=== PATIENT | female | born 1990 | race Caucasian/White ===

== ENCOUNTER 2017-02-01 22:52 | Inpatient (IN) | payer OTHER ==
--- NOTE | ~2017-02-01 | CO ---
Unit #: [id number] #: [id number] Patient: SHYLA GUZMÁN [id number] [address] [address] [id number] I MR#: [id number] NAME: SHYLA GUZMÁN ROOM: 207 Age: 26 Sex: F Admission Date: 02/02/2017 : 1990 Attending Physician: Neal Long M.D. Primary Care Physician: Primary Care Physician No Consultation Date: 02/02/2017 CONSULTATION REPORT REASON FOR CONSULTATION Severe anemia. HISTORY OF PRESENT ILLNESS Ms. Guzmán is a 26-year-old lady. She presented to the emergency room with complaints of headache. Initial workup shows evidence of sinusitis; however, no neurological abnormalities were seen. She was found to be severely anemic. On further questioning, she says she has small amount of bright red blood in the stool off and on. She has a history of peptic ulcer disease 6 years ago. She has been taking ibuprofen on a daily basis. She denies any nausea or vomiting. She denied any abdominal pain. PAST MEDICAL HISTORY Significant for transfusion in 2011. ALLERGIES None. MEDICATIONS At home, ibuprofen. FAMILY HISTORY No history of colon cancer. SOCIAL HISTORY Smoker. Denies alcohol or drug abuse. REVIEW OF SYSTEMS Complete 10-point review of systems was done, which is unremarkable other than as mentioned above. PHYSICAL EXAMINATION VITAL SIGNS: Stable. She is afebrile. Temperature 98, pulse 84, respirations 16, blood pressure 110/68. HEENT: Pupils are equal and reactive. Sclerae anicteric. Oral mucosa moist. NECK: No JVD. No lymphadenopathy. CHEST: Clear to auscultation bilaterally. CARDIOVASCULAR: Regular rate and rhythm. No murmurs. ABDOMEN: Soft, mild epigastric tenderness. No rebound. No guarding. Bowel sounds present. EXTREMITIES: Without clubbing, cyanosis, or edema. NEUROLOGIC: Intact. Unit #: [id number] #: [id number] Patient: SHYLA GUZMÁN SKIN: Warm and dry. DIAGNOSTIC STUDIES LABORATORY RESULTS: Hemoglobin of 7.8, MCV of 62. Ferritin of 2. Normal chemistries. ASSESSMENT AND PLAN The patient with severe iron-deficiency anemia, no excessive menstrual blood loss most likely chronic blood loss through the GI tract, history of peptic ulcer disease, recurrent ulcers possible. Once she is taking significant amount of NSAIDs, we will plan on doing an upper endoscopy. Given her history of brighter red blood in the stool, she will need a colonoscopy also for evaluation. We will also give her iron replacement. Further recommendations to be based on endoscopic findings. Thank you, Dr. Hermosillo for this interesting consult. We will follow along. Dictated by... Reyes Fuller/sylvie TD: 02/02/2017 23:02 JOB #: [id number] CONSULTATION REPORT X Braulio Morris MD X CONSULTATION REPORT
--- NOTE | ~2017-02-01 | OR ---
Unit #: [id number] #: [id number] Patient: SHYLA GUZMÁN [id number] [address] [address] [id number] MR#: [id number] NAME: SHYLA GUZMÁN ROOM: 207 Date of Procedure: 02/04/2017 Admission Date: 02/02/2017 Surgeon: Braulio Morris M.D. : 1990 Attending Physician: Neal Long M.D. Primary Care Physician: Primary Care Physician No OPERATIVE REPORT PROCEDURE PERFORMED Colonoscopy to cecum. INDICATIONS FOR PROCEDURE A 26-year-old presented with very severe iron-deficiency anemia, undergoing evaluation with colonoscopy. MEDICATIONS Monitored anesthesia. POSTOPERATIVE FINDINGS Colonoscopy completed to cecum. No polyps, masses, or colitis were seen. Prep was adequate. PLAN Continue with iron supplementation. DESCRIPTION OF PROCEDURE The patient was explained of the procedure, risks, and benefits along with risks and benefits of anesthesia. She was brought to the endoscopy room. Propofol anesthesia was given. Rectal exam was done, which was normal. Colonoscope was lubricated, passed up the rectum, advanced under direct vision all the way to the cecum. Cecum was identified by ileocecal valve and appendiceal orifice. I then started to pull the scope out carefully looking. No polyps, masses, or colitis was seen. Mucosa was normal and healthy. I retroflexed in the rectum, small hemorrhoids seen. Gently, the scope was pulled out. She tolerated it well. Dictated by... Reyes Fuller/sylvie TD: 02/05/2017 03:30 JOB #: [id number] Unit #: [id number] #: [id number] Patient: SHYLA GUZMÁN OPERATIVE REPORT X Braulio Morris MD X PROCEDURE OPERATIVE NOTE
--- NOTE | ~2017-02-01 | HP ---
Unit #: [id number] #: [id number] Patient: SHYLA GUZMÁN [id number] [address] [address] [id number] I MR#: [id number] NAME: SHYLA GUZMÁN ROOM: 60444 Age: 26 Sex: F Admission Date: 02/02/2017 : 1990 Attending Physician: Samia Hermosillo M.D. Primary Care Physician: No Primary Care Physician HISTORY AND PHYSICAL CHIEF COMPLAINT Symptomatic microcytic anemia. HISTORY This cirilo 26-year-old female, with previous history of anemia requiring transfusion in 2012 following a , is admitted for symptomatic anemia. The patient was actually seen in this emergency department yesterday for headaches. She ultimately underwent a head CT and MRI scan of the brain consistent with sinusitis. However, in the course of her evaluation, she was found to have a microcytic anemia with a hemoglobin of 7.8. She states that over the past month she notes intermittent bright red blood per rectum separate from the stool although denies change in her usual bowel habits otherwise. States that her menstrual periods are not particularly heavy. She was offered admission but declined. She does have children at home. Therefore, she came back to this emergency department late last evening for admission. Her current hematocrit is 26.7 with a hemoglobin of 7.8. She is heme negative on rectal examination. PAST MEDICAL HISTORY Anemia requiring transfusion in 2012 after a . ALLERGIES None. HOME MEDICATIONS Amoxicillin for sinusitis. FAMILY HISTORY Negative for colon disease or anemia. SOCIAL HISTORY The patient lives with her four children. Denies any possibility of . Smokes one pack per day of tobacco. Does not drink alcohol or use illicit drugs. REVIEW OF SYSTEMS Notable for weakness, fatigue, anemia, tobacco use, sinusitis. All other systems were reviewed and are negative. PHYSICAL EXAMINATION GENERAL APPEARANCE: Pleasant, thin, 26-year-old female, currently in no acute distress. Unit #: [id number] #: [id number] Patient: SHYLA GUZMÁN VITAL SIGNS: Temperature 98, pulse 84, respirations 16, blood pressure 110/68. O2 saturation is 100% on room air. HEENT: Eyes PERRLA. Extraocular muscles are intact. Pharynx is benign. Dentures are in place. NECK: Supple without adenopathy or thyromegaly. CHEST: Clear. CARDIAC: Normal S1 and S2 without S3, S4 or murmur. ABDOMEN: Bowel sounds are present. No hepatosplenomegaly, tenderness or masses. RECTAL EXAMINATION: Heme negative stool in the ER. EXTREMITIES: Without clubbing, cyanosis or edema. Pedal pulses are present. NEUROLOGIC EXAM: The patient is awake, alert, oriented. Cranial nerves are intact. Equal strength throughout. DIAGNOSTIC STUDIES LABORATORY: Hematocrit is 26.7, hemoglobin 7.8, MCV is 62, normal white count and platelet count. Coags normal. SMA-12 - potassium is 3.2. ASSESSMENT 1. Symptomatic microcytic anemia. 2. Bright red blood per rectum over the past month. 3. Sinus infection, on amoxicillin. 4. Hypokalemia. 5. Tobacco abuse. PLANS 1. Check iron storers. 2. Transfuse one unit of packed red blood cells, and repeat CBC following transfusion. 3. GI to see in consultation. 4. Replace potassium, check magnesium. Dictated by Samia Hermosillo M.D. AML/df TD: 02/02/2017 06:43 JOB #: [id number] HISTORY AND PHYSICAL X Samia Hermosillo MD X HISTORY AND PHYSICAL
--- NOTE | ~2017-02-01 | DS ---
Unit #: [id number] #: [id number] Patient: SHYLA GUZMÁN [id number] [address] [address] [id number] I MR#: [id number] NAME: SHYLA GUZMÁN ROOM: 207 Age: 26 Sex: F Admission Date: 02/02/2017 : 1990 Discharge Date: 02/04/2017 Attending Physician: Neal Long M.D. DISCHARGE SUMMARY ADMITTING DIAGNOSIS Anemia. FURTHER DIAGNOSES 1. Erin esophagitis. 2. Helicobacter pylori. STRAIGHT EDGER Dr. Barulio Morris. PROCEDURES EGD and colonoscopy. EGD showed gastritis and severe ulcerative esophagitis with whitish deposits in the upper, middle, and distal esophagus circumferentially. Biopsies were taken to rule out Erin esophagitis. The distal esophagus showed a hiatal hernia and esophageal ring that was nonobstructing. Mild gastroduodenitis. Biopsies were taken. She also had a colonoscopy. The colonoscopy was essentially unremarkable. HOSPITAL COURSE Patient was initially admitted to the hospital. She had blood transfusions done. She did not have any further drop in hemoglobin and hematocrit. She had an EGD done on the day of admission which showed Erin esophagitis. She was started on Diflucan. With a concern of having Erin (1) diagnosis, we checked an HIV serology which was negative, and HIV viral load was ordered. HIV viral load is pending at this point. She also had a biopsy when she had the EGD and it came back positive for H. pylori. I had a conversation with Dr. Morris. He recommended to treat esophagitis with Erin initially with Diflucan, and once she is done with the antifungal, to treat as an outpatient for the H. pylori infection. Will give her a prescription for Diflucan 200 mg p.o. daily for 10 days and request her to follow with Dr. Morris in one to two weeks. At that time, he said he will give her a prescription for the H. pylori. I requested her to take Protonix and follow with her primary care as an outpatient. She will be discharged home today in stable condition. PHYSICAL EXAMINATION ON DAY OF DISCHARGE VITAL SIGNS: Temperature 97.8, pulse rate 69, respiratory rate 14, and blood pressure 108/58. GENERAL: Patient is alert and oriented x3, lying in the bed in no acute distress. HEENT: Normocephalic and atraumatic. No icterus. Pupils are equal, Unit #: [id number] #: [id number] Patient: HEARD,SHYLA round, and reactive to light and accommodation. Extraocular muscles intact. NECK: Supple. No JVD. HEART: S1 and S2, regular rate and rhythm. CHEST: Bilateral equal air entry, clear to auscultation. ABDOMEN: Soft and nontender. EXTREMITIES: No edema. Normal pulses. DISCHARGE MEDICATIONS 1. Protonix 40 mg p.o. twice daily. 2. Amoxicillin 250 mg p.o. 3 times daily. 3. Diflucan 200 mg p.o. daily for 10 days. FOLLOWUP She is instructed to follow with Dr. Braulio Morris in one to two weeks. Total time spent in her care 28 minutes. Dictated by... Reyes Sevilla/jerrell TD: 02/04/2017 14:52 JOB #: [id number] DISCHARGE SUMMARY X X DISCHARGE SUMMARY
--- NOTE | ~2017-02-01 | OR ---
Unit #: [id number] #: [id number] Patient: SHYLA GUZMÁN [id number] [address] [address] [id number] I MR#: [id number] NAME: SHYLA GUZMÁN ROOM: 207 Date of Procedure: 02/02/2017 Admission Date: 02/02/2017 Surgeon: Braulio Morris M.D. : 1990 Attending Physician: Neal Long M.D. Primary Care Physician: Primary Care Physician No OPERATIVE REPORT PROCEDURE PERFORMED Esophagogastroduodenoscopy with biopsies. INDICATIONS FOR PROCEDURE The patient with severe iron-deficiency anemia, history of peptic ulcer disease in the past, undergoing colonoscopy. MEDICATIONS Monitored anesthesia. POSTOPERATIVE FINDINGS 1. Severe ulcerative esophagitis with whitish deposits in upper middle and distal esophagus circumferentially. Biopsies taken to rule out Erin esophagitis. 2. Distal esophagus shows hiatal hernia and esophageal ring that was nonobstructing. 3. Mild gastroduodenitis. Biopsies taken looking for H pylori. 4. Biopsies taken descending duodenum to look for celiac disease given her severe iron-deficiency anemia. PLAN PPI and Diflucan for now. DESCRIPTION OF PROCEDURE The patient was explained of the procedure, risks, and benefits along with risks and benefits of anesthesia. She was brought to the endoscopy room. Propofol anesthesia was given. Bite block was placed. The scope was passed down the mouth into the esophagus, stomach, duodenum, and distal duodenum. Findings as described. Biopsies taken. Gently, I pulled the scope out of the patient's mouth. She tolerated it well. No major complications were seen. Dictated by... Reyes Fuller/sylvie TD: 02/02/2017 22:21 JOB #: [id number] Unit #: [id number] #: [id number] Patient: SHYLA GUZMÁN OPERATIVE REPORT X Braulio Morris MD X PROCEDURE OPERATIVE NOTE
[2017-02-01 23:47] LABS: BASOPHIL% 0.3 % (0-2.5); EOSINOPHIL# 0.1 X10e3 (0-0.7); HEMATOCRIT 26.7 % (35.0-45.0); HEMOGLOBIN 7.8 gm/dL (12.0-16.0); LYMPHOCYTE# 2.8 X10e3 (1.0-3.5); LYMPHOCYTE% 38.7 % (17.0-45.0); MEAN CELL VOLUME 61.8 FL (83-96); MEAN CORPUSCULAR HGB CONC 29.2 g/dL (30-36); MEAN PLATELET VOLUME 8.8 FL (6.5-11.5); MONOCYTE# 0.4 X10e3 (0-1.0); MONOCYTE% 6.1 % (3.0-12.0); NEUTROPHIL# 3.9 X10e3 (1.5-7.1); NEUTROPHIL% 53.9 % (40-75); PLATELET COUNT 280 X10e3 (140-420); RED BLOOD COUNT 4.32 X10e (3.90-5.30); RED CELL DISTRIBUTION WIDTH 18.6 % (11.0-15.5); WHITE BLOOD COUNT 7.3 X10e3 (4.0-10.5)
[2017-02-02 00:01] LABS: INR 1.1; PARTIAL THROMBOPLASTIN TIME 26.5 SECONDS (23.5-31.3); PROTHROMBIN TIME (PATIENT) 11.6 SECONDS (9.6-11.5)
[2017-02-02 00:02] LABS: ALBUMIN SERUM 3.7 g/dL (3.5-5.0); ALKALINE PHOSPHATASE 53 U/L (32-92); ALT (SGPT) 9 U/L (10-40); AST (SGOT) 17 U/L (10-42); BILIRUBIN,TOTAL 0.3 mg/dL (0.2-2.0); BLOOD UREA NITROGEN 11 mg/dL (9-23); BUN/CREATININE RATIO 18.33; CALCIUM SERUM 8.7 mg/dL (8.4-10.2); CARBON DIOXIDE 23 mmol/L (22-31); CHLORIDE 106 mmol/L (100-111); CREATININE SERUM 0.6 mg/dL (0.6-1.4); GLOM FILT RATE Estimated ABOVE60 mL/min (>60); GLUCOSE FASTING 110 mg/dL (70-110); POTASSIUM 3.2 mmol/L (3.5-5.1); PROTEIN TOTAL SERUM 6.8 g/dL (6.0-8.3); SODIUM 138 mmol/L (135-145)
[2017-02-02 00:03] LABS: DIFF IND YES
[2017-02-02 00:06] LABS: BILIRUBIN, DIRECT <0.1 mg/dL (0.0-0.2); BILIRUBIN,INDIRECT 0.2 mg/dL (0.0-0.9)
[2017-02-02 00:37] LABS: PLATELET ESTIMATE NORMAL (NORMAL)
[2017-02-02 00:38] LABS: ANISOCYTOSIS MOD; HYPOCHROMIA SL; POIKILOCYTOSIS MOD
[2017-02-02 04:04] LABS: IRON SERUM 8 ug/dL (28-170); TOTAL IRON BINDING CAPACITY 376 ug/dL (269-535); TRANSFERRIN 268 mg/dL (192-382); TRANSFERRIN SATURATION 2 % (20-50)
[2017-02-02 08:07] LABS: HEMATOCRIT 31.9 % (35.0-45.0); HEMOGLOBIN 9.3 gm/dL (12.0-16.0); MEAN CORPUSCULAR HEMOGLOBIN 19.1 PG (28-34); MEAN CORPUSCULAR HGB CONC 29.3 g/dL (30-36); MEAN PLATELET VOLUME 8.8 FL (6.5-11.5); RED BLOOD COUNT 4.88 X10e (3.90-5.30); RED CELL DISTRIBUTION WIDTH 20.7 % (11.0-15.5); WHITE BLOOD COUNT 7.4 X10e3 (4.0-10.5)
[2017-02-02 08:10] LABS: MEAN CELL VOLUME 65.4 FL (83-96)
[2017-02-02 08:33] LABS: BLOOD UREA NITROGEN 10 mg/dL (9-23); BUN/CREATININE RATIO 14.28; CALCIUM SERUM 8.4 mg/dL (8.4-10.2); CARBON DIOXIDE 24 mmol/L (22-31); CHLORIDE 111 mmol/L (100-111); CREATININE SERUM 0.7 mg/dL (0.6-1.4); GLOM FILT RATE Estimated ABOVE60 mL/min (>60); GLUCOSE FASTING 90 mg/dL (70-110); MAGNESIUM 1.8 mg/dL (1.6-3.0); POTASSIUM 4.1 mmol/L (3.5-5.1); SODIUM 138 mmol/L (135-145)
[2017-02-02] MEDS ORDERED: AMOXICILLIN250 M1 PO (08:59)
[2017-02-03 05:36] LABS: HEMATOCRIT 31.3 % (35.0-45.0); HEMOGLOBIN 9.4 gm/dL (12.0-16.0); MEAN CELL VOLUME 63.9 FL (83-96); MEAN CORPUSCULAR HEMOGLOBIN 19.3 PG (28-34); MEAN CORPUSCULAR HGB CONC 30.2 g/dL (30-36); MEAN PLATELET VOLUME 9.1 FL (6.5-11.5); RED BLOOD COUNT 4.89 X10e (3.90-5.30); RED CELL DISTRIBUTION WIDTH 21.2 % (11.0-15.5); WHITE BLOOD COUNT 6.9 X10e3 (4.0-10.5)
[2017-02-03 07:01] LABS: ALBUMIN SERUM 3.5 g/dL (3.5-5.0); ALKALINE PHOSPHATASE 50 U/L (32-92); ALT (SGPT) 11 U/L (10-40); AST (SGOT) 15 U/L (10-42); BILIRUBIN,TOTAL 0.4 mg/dL (0.2-2.0); BLOOD UREA NITROGEN 6 mg/dL (9-23); CALCIUM SERUM 9.1 mg/dL (8.4-10.2); CARBON DIOXIDE 24 mmol/L (22-31); CHLORIDE 111 mmol/L (100-111); CREATININE SERUM 0.6 mg/dL (0.6-1.4); GLOM FILT RATE Estimated ABOVE60 mL/min (>60); GLUCOSE FASTING 84 mg/dL (70-110); POTASSIUM 4.2 mmol/L (3.5-5.1); PROTEIN TOTAL SERUM 6.1 g/dL (6.0-8.3); SODIUM 142 mmol/L (135-145)
[2017-02-04 06:46] LABS: MEAN CELL VOLUME 64.7 FL (83-96); MEAN CORPUSCULAR HEMOGLOBIN 19.1 PG (28-34); MEAN CORPUSCULAR HGB CONC 29.6 g/dL (30-36); MEAN PLATELET VOLUME 9.1 FL (6.5-11.5); RED BLOOD COUNT 5.09 X10e (3.90-5.30); RED CELL DISTRIBUTION WIDTH 21.2 % (11.0-15.5); WHITE BLOOD COUNT 5.3 X10e3 (4.0-10.5)
[2017-02-04 06:54] LABS: HEMATOCRIT 32.9 % (35.0-45.0); HEMOGLOBIN 9.7 gm/dL (12.0-16.0)
[2017-02-04] MEDS ORDERED: PROTONIX PO (14:38)
[2017-02-04] MEDS ORDERED: DIFLUCAN200 MG PO (14:39)
[2017-02-04 22:08] LABS: HIV1 LOG COPIES/ML <1.30 (<1.30); HIV1COPIES/ML <20 (<20)
[2017-04-22] MEDS ORDERED: FERROUS SULFAT325 MG (15:09)
[2017-04-22] MEDS ORDERED: CARAFATE1 GM PO (15:10)
== END 2017-02-04 16:33 | disposition home or self-care (01) | DRG 812 ==
LOC: CED 22:52 → CEDOF 02-02 02:40 → C2A 02-02 07:26
PROVIDERS: Emergency Medicine; Internal Medicine
PROC: 30233N1 Transfusion of Nonautologous Red Blood Cells into Peripheral Vein, Percutaneous Approach (ICD-10-PCS; principal; 2017-02-02 09:30)
PROC: 0DB68ZX Excision of Stomach, Via Natural or Artificial Opening Endoscopic, Diagnostic (ICD-10-PCS; 2017-02-02 09:30)
PROC: 0DJD8ZZ Inspection of Lower Intestinal Tract, Via Natural or Artificial Opening Endoscopic (ICD-10-PCS; 2017-02-04)
DX: D50.9 Iron deficiency anemia, unspecified (principal); B37.81 Candidal esophagitis; K22.10 Ulcer of esophagus without bleeding; K44.9 Diaphragmatic hernia without obstruction or gangrene; F17.210 Nicotine dependence, cigarettes, uncomplicated; M81.0 Age-related osteoporosis without current pathological fracture; K29.90 Gastroduodenitis, unspecified, without bleeding; J32.9 Chronic sinusitis, unspecified; K22.9 Disease of esophagus, unspecified; B96.81 Helicobacter pylori [H. pylori] as the cause of diseases classified elsewhere; R51 Headache
CPT/HCPCS: 36415; 70450; 70551; 80048; 80053; 80076; 82728; 83540; 83550; 83735; 84703; 85025; 85027; 85610; 85730; 86850; 86900; 86901; 86923; 87536; 87806; 88305; 88312; 96361; 96374; 96375; 99284; 99285; C9113; J1100; J1450; J1885; J2916; P9016

== ENCOUNTER → 2017-04-23 | Day surgery (SDC) | payer OTHER ==
[~2017-04-23] MED LIST: AMOXICILLIN250 M1 PO; CARAFATE1 GM PO; DIFLUCAN200 MG PO; FERROUS SULFAT325 MG; PROTONIX PO
--- NOTE | ~2017-04-23 | OR ---
Unit #: [id number] #: [id number] Patient: SHYLA GUZMÁN [id number] [address] [address] [id number] O MR#: [id number] NAME: SHYLA GUZMÁN. ROOM: Date of Procedure: 04/23/2017 Admission Date: 04/23/2017 Surgeon: Braulio Morris M.D. : 1990 Attending Physician: Braulio Morris M.D. OPERATIVE REPORT PROCEDURE PERFORMED Esophagogastroduodenoscopy with biopsies. INDICATIONS FOR PROCEDURE The patient with history of severe esophagitis and dysphagia, undergoing evaluation with upper endoscopy. MEDICATIONS Monitored anesthesia. POSTOPERATIVE FINDINGS 1. Previously documented esophagitis is resolved. Esophagus was normal, but for small hiatal hernia. 2. Normal stomach. 3. Normal duodenum and distal duodenum. Biopsies were taken, because of previous history of changes. PLAN Follow up on the pathology report. Continue with PPI therapy for now. DESCRIPTION OF PROCEDURE The patient was explained of the procedure, risks, and benefits along with the risks and benefits of anesthesia. She was brought to the endoscopy room. Propofol anesthesia was given. Biopsies were taken. Gently, the scope was pulled out. She tolerated it well. No major complications were seen. Dictated by... Reyes Fuller/sylvie TD: 05/12/2017 11:29 JOB #: [id number] Unit #: [id number] #: [id number] Patient: SHYLA GUZMÁN OPERATIVE REPORT Page 1 of 1 X Braulio Morris MD X PROCEDURE OPERATIVE NOTE
[2017-04-23 16:32] LABS: BASOPHIL# 0.1 X10e3 (0-0.3); EOSINOPHIL# 0.1 X10e3 (0-0.7); EOSINOPHIL% 1.3 % (0.0-7.0); HEMATOCRIT 36.7 % (35.0-45.0); LYMPHOCYTE# 1.8 X10e3 (1.0-3.5); LYMPHOCYTE% 37.2 % (17.0-45.0); MEAN CELL VOLUME 83.9 FL (83-96); MEAN CORPUSCULAR HEMOGLOBIN 27.5 PG (28-34); MEAN CORPUSCULAR HGB CONC 32.7 g/dL (30-36); MEAN PLATELET VOLUME 9.8 FL (6.5-11.5); MONOCYTE# 0.3 X10e3 (0-1.0); MONOCYTE% 5.8 % (3.0-12.0); NEUTROPHIL# 2.7 X10e3 (1.5-7.1); NEUTROPHIL% 54.7 % (40-75); PLATELET COUNT 199 X10e3 (140-420); RED BLOOD COUNT 4.37 X10e (3.90-5.30); RED CELL DISTRIBUTION WIDTH 21.4 % (11.0-15.5)
[2017-04-23 16:34] LABS: DIFF IND NO
== END | disposition home or self-care (01) ==
LOC: COPS 12:47
PROVIDERS: Internal Medicine
DX: K20.9 Esophagitis, unspecified (principal); K44.9 Diaphragmatic hernia without obstruction or gangrene; K21.9 Gastro-esophageal reflux disease without esophagitis
CPT/HCPCS: 82728; 84703; 85025; 88305